=== PATIENT | male | born 1960 | race Caucasian/White ===

== ENCOUNTER 2018-04-13 18:29 | Emergency (ER) | payer MEDICAID ==
[~2018-04-13] VITALS: Ht 180.3 cm; Wt 77.0 kg
[2018-04-13 18:35] VITALS: BP 135/92
[2018-04-13] MEDS ORDERED: AZITHROMYCIN 500 MG TABLET PO ONE (19:00)
[2018-04-13] MEDS ORDERED: CEFTRIAXONE 250 MG IM ONE (19:00)
== END 2018-04-13 21:41 | disposition left against medical advice (07) ==
LOC: ED 21:35
DX: R36.9 Urethral discharge, unspecified (principal); Z53.21 Procedure and treatment not carried out due to patient leaving prior to being seen by health care provider